=== PATIENT | female | born 1980 | race Caucasian/White ===

== ENCOUNTER 2023-04-13 00:36 | Emergency (ER) | payer OTHER, SELFPAY ==
[2023-04-13] VITALS (64 sets, daily range): BP systolic 91–127; BP diastolic 61–94; PULSE 87–140; RESP 13–31; TEMP 35.7; O2SAT 87–100
--- NOTE | 2023-04-13 00:44 | ED.OVERDOSE1 ---
Documented by User: Parmjit Arreguin MD 04/18/23 06:51 HPI - Overdose General Chief Complaint: Overdose Stated Complaint: overdose Time Seen by Provider: 04/13/23 00:44 History of Present Illness HPI Narrative: patient arrives via squad. patient words are garbled and difficult to understand. States she took # 16-18 200mg seroquels and # 5 flexeril about 1.5 hours ago. Denies taking any other drugs or meds. Arrives with supplemental 02. RA 02 87% complaint: Reports intentional overdose Intent: unwilling to say Related Data Home Medications Medication Instructions Recorded Confirmed bupropion HCl 300 mg 24 hr tablet, 300 mg PO DAILY 04/13/23 04/13/23 extended release cimetidine 400 mg tablet 400 mg PO Q12H 04/13/23 04/13/23 clonidine HCl 0.1 mg tablet 0.1 mg PO Q8H 04/13/23 04/13/23 duloxetine 60 mg capsule,delayed 60 mg PO DAILY 04/13/23 04/13/23 release ibuprofen 800 mg tablet 800 mg PO Q6H 04/13/23 04/13/23 lamotrigine 100 mg tablet 100 mg PO DAILY 04/13/23 04/13/23 quetiapine 200 mg tablet 200 mg PO DAILY 04/13/23 04/13/23 rizatriptan 10 mg tablet 10 mg PO DAILY 04/13/23 04/13/23 Allergies Allergy/AdvReac Type Severity Reaction Status Date / Time No Known Drug Allergies Allergy Verified 04/13/23 05:12 Review of Systems ROS Status of ROS unobtainable due to mental status Exam Constitutional Vital Signs, click to edit/add: Last Vital Signs Temp 96.3 F L 04/13/23 00:46 Pulse 88 04/13/23 12:53 Resp 16 04/13/23 12:53 BP 125/88 04/13/23 12:53 Pulse Ox 97 04/13/23 12:53 O2 Del Method Room Air 04/13/23 12:36 Common normals: no apparent distress (sedated but awake) and average body habitus General appearance: cooperative HENMT Other: dry mouth Eye Common normals: PERRL and EOMs intact bilaterally Respiratory Common normals: normal respiratory effort, no retractions, no use of accessory muscles and clear to auscultation bilaterally Cardio Rate: tachycardic GI Common normals: Normal to inspection, nondistended, normoactive bowel sounds present, soft to palpation and non-tender Extremity Common normals: normal to inspection and full ROM Neuro Common normals: moves all extremities and no focal motor deficits Other: garbled speech. sedate but awake Psych Speech: incoherent Course Vital Signs Vital signs: Vital Signs Blood Pressure 98/71 04/13/23 00:42 Temperature 96.3 F L 04/13/23 00:46 Pulse Rate 88 04/13/23 12:53 Respiratory Rate 16 04/13/23 12:53 Blood Pressure 125/88 04/13/23 12:53 Pulse Oximetry 97 04/13/23 12:53 Oxygen Delivery Method Room Air 04/13/23 12:36 MDM - Overdose MDM Narrative Medical decision making narrative: patient presents via squad after overdose of Seroquel and flexeril. Her speech is garbled and only a few words at times are discernible. Did understand from her that this is not her normal speech. She is jittery and jerky at times. urine drug screen positive for amphetamines, methamphetamines and THC. poison control contacted and recommended observation for 6-8 hours and to treat her tachycardia with magnesium. Patient given magnesium IVPB and potassium 40meg IVPB. She became more jittery and language even more dysarthric. she appeared to understand the question ask of her but her reply was not understandable. CT brain ordered as part of the workup. There was motion artifact but acute findings. she is currently resting and no longer jerking. Per nursing some of her words are now discernible again. will continue to monitor and transfer care to Dr Knight at change of shift Lab Data Labs: Lab Results 04/13/23 04/13/23 04/13/23 Range/Units 00:49 01:05 01:45 WBC 5.7 (4.0-11.0) 10^3/uL RBC 4.30 (4.20-5.40) 10^6/uL Hgb 13.5 (12.0-16.0) g/dL Hct 41.3 (36.0-48.0) % MCV 96.0 (81.0-99.0) fL MCH 31.4 (26.7-34.0) pg MCHC 32.7 (29.9-35.2) g/dL RDW 12.9 (11.0-15.0) % Plt Count 253 (150-450) 10^3/uL MPV 10.6 (9.5-13.5) fL Neut % (Auto) 58.3 (43.0-75.0) % Lymph % (Auto) 24.7 (20.5-60.0) % [place] % (Auto) 7.8 (1.7-12.0) % Eos % (Auto) 8.5 H (0.9-7.0) % Baso % (Auto) 0.5 (0.2-2.0) % Neut # (Auto) 3.3 (1.4-6.5) 10^3/uL Lymph # (Auto) 1.4 (1.2-3.8) 10^3/uL [place] # (Auto) 0.4 (0.3-0.8) 10^3/uL Eos # (Auto) 0.5 (0.0-0.7) 10^3/uL Baso # (Auto) 0.0 (0.0-0.1) 10^3/uL Abs Immat Gran (auto) 0.01 (0.00-0.03) 10^3/uL Imm/Tot Granulo (auto) 0.2 (0.0-0.5) % ABG pH 7.434 (7.350-7.450) ABG pCO2 34.4 L (35.0-45.0) mmHg ABG pO2 35.7 L (80.0-100.0) mmHg ABG HCO3 23.1 (22.0-26.0) mmol/L ABG O2 Saturation 82.5 % ABG Base Excess -1.2 (-2.0-2.0) mmol/L Huang Test Positive (POSITIVE) Sodium 139 (136-145) mmol/L Potassium 3.4 L (3.5-5.1) mmol/L Chloride 105 (98-107) mmol/L Carbon Dioxide 21.7 (21.0-32.0) mmol/L Anion Gap 15.7 BUN 14.0 (7.0-18.0) mg/dL Creatinine 0.74 (0.55-1.02) mg/dL Est GFR ( Amer) >60 (>=60) Est GFR (Non-Af Amer) >60 (>=60) BUN/Creatinine Ratio 18.9 Glucose 144 H (74-106) mg/dL Lactate 0.9 (0.4-2.0) mmol/L Calcium 8.1 L (8.5-10.1) mg/dL Total Bilirubin 0.4 (0.2-1.0) mg/dL AST 16 (15-37) U/L ALT 18 (14-59) U/L Alkaline Phosphatase 75 (46-116) U/L Troponin I High Sens <4.0 L (4.0-51.3) pg/mL Total Protein 7.1 (6.4-8.2) g/dL Albumin 3.4 (3.4-5.0) g/dL Globulin 3.7 g/dL Albumin/Globulin Ratio 0.9 Urine HCG, Qual Negative (NEGATIVE) Salicylates 3.5 (<=19.9) mg/dL Urine Opiates Screen Negative (NEGATIVE) Ur Buprenorphine Scrn Negative (NEGATIVE) Ur Oxycodone Screen Negative (NEGATIVE) Urine Methadone Screen Negative (NEGATIVE) Ur Propoxyphene Screen Negative (NEGATIVE) Acetaminophen <2.0 L (10.0-30.0) ug/mL Ur Barbiturates Screen Negative (NEGATIVE) U Tricyclic Antidepress Positive A (NEGATIVE) Ur Phencyclidine Scrn Negative (NEGATIVE) Ur Amphetamines Screen Positive A (NEGATIVE) U Methamphetamines Scrn Positive A (NEGATIVE) U Benzodiazepines Scrn Negative (NEGATIVE) Urine Cocaine Screen Negative (NEGATIVE) U Cannabinoids Screen Positive A (NEGATIVE) Ethanol Quant <3 mg/dL Discharge Plan Discharge Chief Complaint: Overdose Clinical Impression: Suicide attempt by multiple drug overdose, Drug overdose, Polysubstance abuse Patient Disposition: Xfer Psychiatric Hosp Time of Disposition Decision: 13:09 Discharge Location: [facility] Condition: Fair Mode of Transportation: Mental Health Car Stand Alone Forms: Portal Instructions Discharge Date/Time: 04/13/23 13:41 Documented by User: Roberto Knight MD 04/13/23 13:09 HPI - Overdose General Chief Complaint: Overdose Stated Complaint: overdose Time Seen by Provider: 04/13/23 00:44 Related Data Home Medications Medication Instructions Recorded Confirmed bupropion HCl 300 mg 24 hr tablet, 300 mg PO DAILY 04/13/23 04/13/23 extended release cimetidine 400 mg tablet 400 mg PO Q12H 04/13/23 04/13/23 clonidine HCl 0.1 mg tablet 0.1 mg PO Q8H 04/13/23 04/13/23 duloxetine 60 mg capsule,delayed 60 mg PO DAILY 04/13/23 04/13/23 release ibuprofen 800 mg tablet 800 mg PO Q6H 04/13/23 04/13/23 lamotrigine 100 mg tablet 100 mg PO DAILY 04/13/23 04/13/23 quetiapine 200 mg tablet 200 mg PO DAILY 04/13/23 04/13/23 rizatriptan 10 mg tablet 10 mg PO DAILY 04/13/23 04/13/23 Allergies Allergy/AdvReac Type Severity Reaction Status Date / Time No Known Drug Allergies Allergy Verified 04/13/23 05:12 Exam Constitutional Vital Signs, click to edit/add: Last Vital Signs Temp 96.3 F L 04/13/23 00:46 Pulse 88 04/13/23 12:53 Resp 16 04/13/23 12:53 BP 125/88 04/13/23 12:53 Pulse Ox 97 04/13/23 12:53 O2 Del Method Room Air 04/13/23 12:36 Course Vital Signs Vital signs: Vital Signs Blood Pressure 98/71 04/13/23 00:42 Temperature 96.3 F L 04/13/23 00:46 Pulse Rate 88 04/13/23 12:53 Respiratory Rate 16 04/13/23 12:53 Blood Pressure 125/88 04/13/23 12:53 Pulse Oximetry 97 04/13/23 12:53 Oxygen Delivery Method Room Air 04/13/23 12:36 MDM - Overdose MDM Narrative Medical decision making narrative: patient presents via squad after overdose of Seroquel and flexeril. Her speech is garbled and only a few words at times are discernible. Did understand from her that this is not her normal speech. She is jittery and jerky at times. urine drug screen positive for amphetamines, methamphetamines and THC. poison control contacted and recommended observation for 6-8 hours and to treat her tachycardia with magnesium. Patient given magnesium IVPB and potassium 40meg IVPB. She became more jittery and language even more dysarthric. she appeared to understand the question ask of her but her reply was not understandable. CT brain ordered as part of the workup. There was motion artifact but acute findings. she is currently resting and no longer jerking. Per nursing some of her words are now discernible again. will continue to monitor and transfer care to Dr Knight at change of shift JK the patient has been observed here and she is now medically cleared. Mental health services has been involved and she'll be admitted to the psychiatric floor at [facility]. Differential Diagnosis Differential diagnosis: Likely suicide attempt by multiple drug overdose, poisoning by opiate or related narcotic, drug overdose and acetaminophen overdose Lab Data Attestation: I reviewed the patient's lab results. Labs: Lab Results 04/13/23 04/13/23 04/13/23 Range/Units 00:49 01:05 01:45 WBC 5.7 (4.0-11.0) 10^3/uL RBC 4.30 (4.20-5.40) 10^6/uL Hgb 13.5 (12.0-16.0) g/dL Hct 41.3 (36.0-48.0) % MCV 96.0 (81.0-99.0) fL MCH 31.4 (26.7-34.0) pg MCHC 32.7 (29.9-35.2) g/dL RDW 12.9 (11.0-15.0) % Plt Count 253 (150-450) 10^3/uL MPV 10.6 (9.5-13.5) fL Neut % (Auto) 58.3 (43.0-75.0) % Lymph % (Auto) 24.7 (20.5-60.0) % [place] % (Auto) 7.8 (1.7-12.0) % Eos % (Auto) 8.5 H (0.9-7.0) % Baso % (Auto) 0.5 (0.2-2.0) % Neut # (Auto) 3.3 (1.4-6.5) 10^3/uL Lymph # (Auto) 1.4 (1.2-3.8) 10^3/uL [place] # (Auto) 0.4 (0.3-0.8) 10^3/uL Eos # (Auto) 0.5 (0.0-0.7) 10^3/uL Baso # (Auto) 0.0 (0.0-0.1) 10^3/uL Abs Immat Gran (auto) 0.01 (0.00-0.03) 10^3/uL Imm/Tot Granulo (auto) 0.2 (0.0-0.5) % ABG pH 7.434 (7.350-7.450) ABG pCO2 34.4 L (35.0-45.0) mmHg ABG pO2 35.7 L (80.0-100.0) mmHg ABG HCO3 23.1 (22.0-26.0) mmol/L ABG O2 Saturation 82.5 % ABG Base Excess -1.2 (-2.0-2.0) mmol/L Huang Test Positive (POSITIVE) Sodium 139 (136-145) mmol/L Potassium 3.4 L (3.5-5.1) mmol/L Chloride 105 (98-107) mmol/L Carbon Dioxide 21.7 (21.0-32.0) mmol/L Anion Gap 15.7 BUN 14.0 (7.0-18.0) mg/dL Creatinine 0.74 (0.55-1.02) mg/dL Est GFR ( Amer) >60 (>=60) Est GFR (Non-Af Amer) >60 (>=60) BUN/Creatinine Ratio 18.9 Glucose 144 H (74-106) mg/dL Lactate 0.9 (0.4-2.0) mmol/L Calcium 8.1 L (8.5-10.1) mg/dL Total Bilirubin 0.4 (0.2-1.0) mg/dL AST 16 (15-37) U/L ALT 18 (14-59) U/L Alkaline Phosphatase 75 (46-116) U/L Troponin I High Sens <4.0 L (4.0-51.3) pg/mL Total Protein 7.1 (6.4-8.2) g/dL Albumin 3.4 (3.4-5.0) g/dL Globulin 3.7 g/dL Albumin/Globulin Ratio 0.9 Urine HCG, Qual Negative (NEGATIVE) Salicylates 3.5 (<=19.9) mg/dL Urine Opiates Screen Negative (NEGATIVE) Ur Buprenorphine Scrn Negative (NEGATIVE) Ur Oxycodone Screen Negative (NEGATIVE) Urine Methadone Screen Negative (NEGATIVE) Ur Propoxyphene Screen Negative (NEGATIVE) Acetaminophen <2.0 L (10.0-30.0) ug/mL Ur Barbiturates Screen Negative (NEGATIVE) U Tricyclic Antidepress Positive A (NEGATIVE) Ur Phencyclidine Scrn Negative (NEGATIVE) Ur Amphetamines Screen Positive A (NEGATIVE) U Methamphetamines Scrn Positive A (NEGATIVE) U Benzodiazepines Scrn Negative (NEGATIVE) Urine Cocaine Screen Negative (NEGATIVE) U Cannabinoids Screen Positive A (NEGATIVE) Ethanol Quant <3 mg/dL Discharge Plan Discharge Chief Complaint: Overdose Clinical Impression: Suicide attempt by multiple drug overdose, Drug overdose, Polysubstance abuse Patient Disposition: Xfer Psychiatric Hosp Time of Disposition Decision: 13:09 Discharge Location: [facility] Condition: Fair Mode of Transportation: Mental Health Car Stand Alone Forms: Portal Instructions Discharge Date/Time: 04/13/23 13:41
--- NOTE | 2023-04-13 00:48 | ECG_ITS ---
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
--- NOTE | 2023-04-13 00:53 | PC.NURSE ---
Pt presents to ER via EMS for a drug overdose Per rod pt took 15 Seroquel an hour ago and called the check viewer herself Rod states that she did not have anyone else at home and denied suicidal ideation On arrival pt is on 3L via NC On room air pt is 87%, pt did not rise with the us of a nasal cannula Pt placed on Non re-breather at 15L and jacquelin to 93% Pt unable to tell us her name, birthday, or speak clearly Pt aware of her surroundings but unable to get her words out clearly Pt does state that she took 16 Seroquel 200mg and at least 5 Flexeril Pt drowsy yet restless Cooperative
[2023-04-13 01:01] LABS: Basophils Percent Auto 0.5 % (0.2-2.0); Eosinophils Absolute Auto 0.5 10^3/uL (0.0-0.7); Eosinophils Percent Auto 8.5 % (0.9-7.0); Hematocrit 41.3 % (36.0-48.0); Hemoglobin 13.5 g/dL (12.0-16.0); Immature Granulocytes Abs Auto 0.01 10^3/uL (0.00-0.03); Immature Granulocytes Pct Auto 0.2 % (0.0-0.5); Lymphocytes Absolute Auto 1.4 10^3/uL (1.2-3.8); Lymphocytes Percent Auto 24.7 % (20.5-60.0); Mean Corpuscular HGB Conc 32.7 g/dL (29.9-35.2); Mean Corpuscular Hemoglobin 31.4 pg (26.7-34.0); Mean Platelet Volume 10.6 fL (9.5-13.5); Monocytes Absolute Auto 0.4 10^3/uL (0.3-0.8); Monocytes Percent Auto 7.8 % (1.7-12.0); Neutrophils Absolute Auto 3.3 10^3/uL (1.4-6.5); Neutrophils Percent Auto 58.3 % (43.0-75.0); Platelet Count 253 10^3/uL (150-450); Red Cell Distribution Width 12.9 % (11.0-15.0); White Blood Count 5.7 10^3/uL (4.0-11.0)
[2023-04-13 01:14] LABS: Lactate/Lactic Acid 0.9 mmol/L (0.4-2.0)
[2023-04-13] MEDS: MAGNESIUM SULFATE IN WATER 2 GM/50 ML PREMIX IV (01:14)
[2023-04-13] MEDS: 0.9 % SODIUM CHLORIDE 1,000 ML 999 ML IV (01:15)
[2023-04-13 01:26] LABS: Amphetamine Screen Urine POSITIVE (NEGATIVE); Barbiturates Screen Urine NEGATIVE (NEGATIVE); Benzodiazepines Screen Urine NEGATIVE (NEGATIVE); Buprenorphine Screen Urine NEGATIVE (NEGATIVE); Cannabinoid Screen Urine POSITIVE (NEGATIVE); Cocaine Screen Urine NEGATIVE (NEGATIVE); Methadone Screen Urine NEGATIVE (NEGATIVE); Methamphetamines Screen Urine POSITIVE (NEGATIVE); Opiate Screen Urine NEGATIVE (NEGATIVE); Oxycodone Screen Urine NEGATIVE (NEGATIVE); Phencyclidine Screen Urine NEGATIVE (NEGATIVE); Tricyclic Antidepressant Urine POSITIVE (NEGATIVE)
--- NOTE | 2023-04-13 01:27 | PC.NURSE ---
o2 discontinued at this time, placed on standby.patient 93-99% on room air
--- NOTE | 2023-04-13 01:40 | PC.NURSE ---
patient denies any attempts to self harm. no need for sitter at this time. patient is continuously being watched.
[2023-04-13 02:23] LABS: ABG PCO2 34.4 mmHg (35.0-45.0); HCO3 ABG 23.1 mmol/L (22.0-26.0); PO2 ABG 35.7 mmHg (80.0-100.0); pH ABG 7.434 (7.350-7.450)
[2023-04-13 02:24] LABS: Base Excess ABG -1.2 mmol/L (-2.0-2.0); Oxygen Saturation ABG 82.5 %
[2023-04-13 02:26] LABS: Alanine Aminotransferase 18 U/L (14-59); Albumin Globulin Ratio 0.9; Albumin Level 3.4 g/dL (3.4-5.0); Alkaline Phosphatase 75 U/L (46-116); Anion Gap 15.7; Aspartate Amino Transferase 16 U/L (15-37); BUN Creatinine Ratio 18.9; Bilirubin Total 0.4 mg/dL (0.2-1.0); Calcium 8.1 mg/dL (8.5-10.1); Carbon Dioxide 21.7 mmol/L (21.0-32.0); Chloride 105 mmol/L (98-107); Estimated GFR (African America >60 (>=60); Estimated GFR (Non-African Ame >60 (>=60); Ethanol <3 mg/dL; Globulin 3.7 g/dL; Glucose 144 mg/dL (74-106); Potassium 3.4 mmol/L (3.5-5.1); Sodium 139 mmol/L (136-145); Total Protein 7.1 g/dL (6.4-8.2); Troponin I High Sensitivity <4.0 pg/mL (4.0-51.3)
[2023-04-13 02:27] LABS: Allen Test POSITIVE (POSITIVE)
[2023-04-13 03:10] LABS: Acetaminophen <2.0 ug/mL (10.0-30.0); Salicylate 3.5 mg/dL (<=19.9)
--- NOTE | 2023-04-13 03:15 | ECG_ITS ---
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
[2023-04-13] MEDS: POTASSIUM CHLORIDE 10 MEQ IN WATER 100 ML PIGGYBACK IV ×4 (03:45→06:06)
--- NOTE | 2023-04-13 04:19 | CT_ITS ---
The [address] [address] Patient Name: PHIL MERRILL MRN: [id number] date: 1980 Sex: F Assigned Patient Location: ER Current [facility] Accession/Order Number: [id number] Exam Date: 04/13/2023 04:50 Report Date: 04/13/2023 05:19 At the request of: LENORA CRISTINA Procedure: CT head/brain wo con EXAM: CT head/brain wo con HISTORY: Altered mental status. COMPARISON: None. TECHNIQUE: Routine noncontrast CT head without contrast. FINDINGS: Motion artifact degrades the examination. The brain volume and ventricles and cisterns are within normal limits. There is no acute large vessel infarct. The brainstem, cerebellum, basal ganglia and thalami are unremarkable. There is no intracranial hemorrhage. There is no mass lesion. There is no mass effect or midline shift. There are no abnormal intra or extra-axial fluid collections. The skull and scalp are unremarkable. There may be mucosal thickening within the ethmoid air cells however the paranasal sinuses are not adequately evaluated secondary to significant motion artifact. CT/CT head/brain wo con IMPRESSION: Motion artifact degrades the examination. No acute intracranial abnormality is identified. There may be mucosal thickening within the ethmoid air cells however the paranasal sinuses are not adequately evaluated secondary to significant motion artifact. Electronically authenticated by: ROBIN WEINSTEIN Date: 04/13/2023 05:19
--- NOTE | 2023-04-13 06:34 | XR_ITS ---
The [address] [address] Patient Name: PHIL MERRILL MRN: [id number] date: 1980 Sex: F Assigned Patient Location: ED.MAIN Current Patient Location: ED.MAIN Accession/Order Number: [id number] Exam Date: 04/13/2023 06:50 Report Date: 04/13/2023 07:26 At the request of: LENORA CRISTINA Procedure: XR chest 1V EXAMINATION: XR chest 1V HISTORY: short of breath COMPARISON: No relevant comparison available. FINDINGS: LUNGS: No significant pulmonary parenchymal abnormalities. VASCULATURE: No increased pulmonary vasculature. PLEURA: No pneumothorax, effusion, or pleural thickening. CARDIAC: No cardiomegaly or cardiac silhouette abnormality. MEDIASTINUM: No visible mass or adenopathy. BONES: No fracture or visible bone lesion. OTHER: Negative. XR/XR chest 1V IMPRESSION: 1. No acute cardiopulmonary process. Electronically authenticated by: YUDELKA QUIROZ Date: 04/13/2023 07:26
--- NOTE | 2023-04-13 07:18 | PC.NURSE ---
PATIENT IS UNABLE TO FORM COHERENT WORDS. UPON ENTERING PATIENTS ROOM PT WAS MOANING AN FLAILING ARMS. WHEN ASKING PATIENT WHAT IS WRONG PATIENT WAS MUMBLING AND UNABLE TO FORM A CLEAR . ER PHYSICIAN IS AWARE. According to night nurse this behavior was present throughout the night,
[2023-04-13 09:06] LABS: HCG Qualitative Urine* NEGATIVE (NEGATIVE)
== END 2023-04-13 13:41 ==
PROVIDERS: Internal Medicine; Emergency Provider Emergency Medicine; PCP Family Medicine
DX: T43.592A Poisoning by other antipsychotics and neuroleptics, intentional self-harm, initial encounter (principal); T48.1X2A Poisoning by skeletal muscle relaxants [neuromuscular blocking agents], intentional self-harm, initial encounter; F19.10 Other psychoactive substance abuse, uncomplicated; Z79.899 Other long term (current) drug therapy
CPT/HCPCS: 36415; 36600; 70450; 71045; 80053; 80179; 80307; 80320; 80329; 82805; 83605; 84484; 84703; 85025; 93005; 96365; 96375; 96376; 99285

== ENCOUNTER 2023-11-24 11:43 | Outpatient (OUT) | payer OTHER, SELFPAY ==
--- NOTE | 2023-11-24 11:50 | XR_ITS ---
The [address] [address] Patient Name: PHIL MERRILL MRN: [id number] date: 1980 Sex: F Assigned Patient Location: [facility] Current Patient Location: Accession/Order Number: [id number] Exam Date: 11/24/2023 11:55 Report Date: 11/26/2023 05:29 At the request of: ROSE PEREZ Procedure: XR sinus min 3V EXAMINATION: XR sinus min 3V HISTORY: Chronic sinusitis COMPARISON: No relevant comparison available. FINDINGS: MAXILLARY: Marked mucosal thickening, left greater than right. ETHMOID: Suspect mild mucosal thickening. FRONTAL: Suspect mucosal thickening. SPHENOID: Suspect mild mucosal thickening. OTHER: Negative. XR/XR sinus min 3V IMPRESSION: 1. Bilateral maxillary marked chronic sinusitis. 2. No fluid levels to suggest acute sinusitis. Electronically authenticated by: YUDELKA QUIROZ Date: 11/26/2023 05:29
== END 2023-11-24 11:44 | disposition home or self-care (01) ==
LOC: RAD 11:46
PROVIDERS: PCP Family Medicine; Visit Provider Family Medicine
DX: R91.8 Other nonspecific abnormal finding of lung field (principal); J32.9 Chronic sinusitis, unspecified
CPT/HCPCS: 70220